=== PATIENT | female | born 1955 | race Caucasian/White ===

== ENCOUNTER 2020-12-04 13:28 | Inpatient (IN) ==
[2020-12-04] MEDS ORDERED: Ondansetron 4 MG/2 ML VIAL IVP ONE (13:59)
[2020-12-04 14:23] LABS: VBG HCO3 26 mEq/L (21-27); VBG PCO2 43 mmHg (41-51); VBG PH 7.38 pH Units (7.32-7.42); VBG PO2 74 mmHg (25-50)
[2020-12-04] MEDS: 0.9 % Sodium Chloride 1,000 ML IVC SCH ×2 (14:27→15:44)
[2020-12-04 14:31] LABS: Calcium 9.6 mg/dL (8.6-10.3); Potassium 4.4 mEq/L (3.5-5.1)
[2020-12-04 14:34] LABS: Basophils % 0.3 %; Hematocrit 42.9 % (35.3-44.9); Hemoglobin 15.2 g/dL (11.5-15.4); Immature Granulocytes % 0.3 % (0-4); Lymphocytes # 1.9 K/mcL (0.6-4.6); Lymphocytes % 16.4 %; Mean Corpuscular HGB Conc 35.4 g/dL (31.6-35.5); Mean Corpuscular Hemoglobin 32.2 pg (28.0-33.3); Mean Corpuscular Volume 90.9 fL (83.0-100.0); Mean Platelet Volume 11.5 fL (9.4-12.4); Monocytes # 0.4 K/mcL (0.0-1.3); Monocytes % 3.6 %; Neutrophils # 9.4 K/mcL (1.6-8.9); Platelet Count 188 K/mcL (140-400); Red Blood Count 4.72 M/mcL (3.82-4.97); Red Cell Distribution Width 11.6 % (11.5-14.5); Segmented Neutrophils % 79.4 %; White Blood Count 11.8 K/mcL (4.3-11.1)
[2020-12-04 14:35] LABS: Bilirubin,Urine Negative (Negative); Blood,Urine Negative (Negative); Clarity,Urine Clear (Clear); Color,Urine Colorless (Yellow); Glucose,Urine (UA) >=1000 mg/dL (Normal); Ketones,Urine Negative (Negative); Leukocyte Esterase,Urine Negative (Negative); Nitrite,Urine Negative (Negative); Protein,Urine Negative (Neg-Trace); RBC,Urine 0-3 per hpf (0-3); Specific Gravity,Urine 1.025 (1.010-1.025); Squamous Epithelial Cell,Urine Few per hpf (None-Few); Urobilinogen,Urine Normal (Normal); WBC,Urine 0-3 per hpf (0-3)
[2020-12-04 14:46] LABS: Magnesium 2.6 mg/dL (1.6-2.6)
[2020-12-04] MEDS ORDERED: Insulin Human Regular 100 UNIT in 0.9 % Sodium Chloride 100 ML IVC SCH (15:00)
[2020-12-04] MEDS ORDERED: Ringers Solution, Lactated 2,000 ML IVC ONE (15:03)
[2020-12-04] MEDS ORDERED: Naloxone 0.4 MG/ML INJ IVP PRN (15:39)
[2020-12-04] MEDS ORDERED: Acetaminophen 325 MG TABLET PO PRN (15:39)
[2020-12-04] MEDS ORDERED: Ondansetron 4 MG/2 ML VIAL IVP PRN (15:39)
[2020-12-04] MEDS ORDERED: Insulin DETEMIR 100 UNIT/ML X5UNITS SUBQ ONE (17:20)
[2020-12-04] MEDS ORDERED: Dextrose Gel 15 GM/37.5 ML TUBE PO PRN ×2 (17:21)
[2020-12-04] MEDS ORDERED: *HR* Dextrose 50 % in Water (Vial) 50 ML VIAL IVP PRN (17:21)
[2020-12-04] MEDS ORDERED: D5% in Water 1,000 ML IVC PRN (17:21)
[2020-12-04] MEDS ORDERED: Ringers Solution, Lactated 1,000 ML IVC ONE (17:40)
[2020-12-04 18:49] LABS: BUN/Creatinine Ratio 48 (6-26); Blood Urea Nitrogen 49 mg/dL (8-23); Calcium 8.3 mg/dL (8.6-10.3); Carbon Dioxide 26 mEq/L (23-29); Chloride 103 mEq/L (98-107); Glucose 216 mg/dL (70-105); Osmolality,Calculated 298 (280-300); Potassium 4.4 mEq/L (3.5-5.1); Sodium 134 mEq/L (136-145); eGFR For African Americans > 60 (> 60); eGFR For Non-African Americans 54 (> 60)
[2020-12-04] MEDS ORDERED: Insulin LISPRO 300 UNITS/3 ML VIAL SUBQ SCH (21:00)
[2020-12-05 00:53] LABS: BUN/Creatinine Ratio 42 (6-26); Blood Urea Nitrogen 37 mg/dL (8-23); Calcium 8.1 mg/dL (8.6-10.3); Carbon Dioxide 24 mEq/L (23-29); Chloride 106 mEq/L (98-107); Glucose 114 mg/dL (70-105); Osmolality,Calculated 294 (280-300); Sodium 137 mEq/L (136-145); eGFR For African Americans > 60 (> 60); eGFR For Non-African Americans > 60 (> 60)
[2020-12-05 03:00] LABS: Blood Urea Nitrogen 35 mg/dL (8-23); Calcium 8.3 mg/dL (8.6-10.3); Carbon Dioxide 25 mEq/L (23-29); Chloride 106 mEq/L (98-107); Glucose 61 mg/dL (70-105); Osmolality,Calculated 290 (280-300); Potassium 4.4 mEq/L (3.5-5.1); Sodium 137 mEq/L (136-145)
[2020-12-05 04:06] LABS: BUN/Creatinine Ratio 40 (6-26); eGFR For African Americans > 60 (> 60); eGFR For Non-African Americans > 60 (> 60)
[2020-12-05 05:27] LABS: BUN/Creatinine Ratio 43 (6-26); Blood Urea Nitrogen 34 mg/dL (8-23); Calcium 8.2 mg/dL (8.6-10.3); Carbon Dioxide 24 mEq/L (23-29); Chloride 107 mEq/L (98-107); Glucose 70 mg/dL (70-105); Magnesium 2.2 mg/dL (1.6-2.6); Osmolality,Calculated 292 (280-300); Phosphorous 1.6 mg/dL (2.7-4.5); Sodium 138 mEq/L (136-145); eGFR For African Americans > 60 (> 60); eGFR For Non-African Americans > 60 (> 60)
[2020-12-05] MEDS ORDERED: *HR* Enoxaparin 40 MG/0.4 ML SYRINGE SQ SCH (06:00)
[2020-12-05] MEDS ORDERED: Potassium Phosphate 44 MEQ in 0.9 % Sodium Chloride 250 ML IVPB ONE (08:13)
[2020-12-05] MEDS ORDERED: *HR* HYDROcodone/Acet 5/325 mg TABLET PO PRN (09:19)
[2020-12-05] MEDS: Insulin LISPRO 300 UNITS/3 ML VIAL SUBQ SCH ×2 (09:28→14:32)
[2020-12-05 11:43] VITALS: BP 111/66
== END 2020-12-05 16:38 | disposition home or self-care (01) | DRG 177 ==
LOC: 2NENU 13:28 → EMEROOARM 13:28 → SUATTDRO 15:31 → 2NENU 16:20
PROVIDERS: ADMIT Internal Medicine; ATTEND Internal Medicine